=== PATIENT | female | born 1950 | race Caucasian/White ===

== ENCOUNTER 2018-09-25 13:00 | Emergency (ER) | payer SELFPAY ==
[2018-09-25 13:10] VITALS: BP 119/69; PULSE 61; TEMP 98.5; BMI 29.2
--- NOTE | 2018-09-25 13:12 | PDOC ---
Rapid Medical Evaluation Chief Complaint: Chest Pain Time Seen by Provider: 09/25/18 13:06 Medical Evaluation: 09/25/18 13:06 This patient had a brief in-person evaluation in triage CC: chest pain x 4 days. States pain in epigastric area that pierces through to back with some dizziness PE: NAD unlabored breathing S1S2 orders: ekg, labs This patient will proceed to the ED for further evaluation Discharge Disposition - Diagnosis Chest pain - Referrals - Patient Instructions - Post Discharge Activity
--- NOTE | 2018-09-25 14:55 | EKG ---
Test Reason : Blood Pressure : / mmHG Vent. Rate : 056 BPM Atrial Rate : 056 BPM P-R Int : 134 ms QRS Dur : 080 ms QT Int : 434 ms P-R-T Axes : 012 038 023 degrees QTc Int : 418 ms SINUS BRADYCARDIA OTHERWISE NORMAL ECG NO PREVIOUS ECGS AVAILABLE Confirmed by PABLO GUTIERREZ, BROOKE ([id number]) on 09/25/2018 2:55:19 PM Referred By: Confirmed By:BROOKE SHAH MD
[2018-09-25 15:28] LABS: BASO % 0.9 % (0-2.0); EOS % 4.8 % (0-4.5); HEMATOCRIT 33.4 % (32.4-45.2); HEMOGLOBIN 11.4 GM/dL (10.7-15.3); MCHC 34.3 g/dl (32.0-36.0); MEAN CELL VOLUME 90.4 fl (80-96); MEAN PLT VOLUME 8.9 fl (7.5-11.1); MONO % 9.2 % (3.8-10.2); NEUT % 55.1 % (42.8-82.8); PLATELET COUNT 172 K/MM3 (134-434); RBC 3.69 M/mm3 (3.60-5.2); RDW 13.2 % (11.6-15.6); WHITE BLOOD COUNT 3.7 K/mm3 (4.0-10.0)
[2018-09-25 15:50] LABS: ALBUMIN 3.7 g/dl (3.4-5.0); ALK PHOS 84 U/L (45-117); ANION GAP 2 MMOL/L (8-16); BILIRUBIN,TOTAL 0.3 mg/dL (0.2-1); BLOOD UREA NITROGEN 13.1 mg/dL (7-18); CALCIUM 8.7 mg/dL (8.5-10.1); CHLORIDE 105 mmol/L (98-107); CO2 34 mmol/L (21-32); CREATININE 0.7 mg/dL (0.55-1.3); GLUCOSE,RANDOM 79 mg/dL (74-106); POTASSIUM 4.8 mmol/L (3.5-5.1); SGOT/AST 12 U/L (15-37); SGPT/ALT 16 U/L (13-61); SODIUM 141 mmol/L (136-145); TOT PROT 6.7 g/dl (6.4-8.2)
--- NOTE | 2018-09-25 16:45 | PDOC ---
*Physical Exam - Vital Signs Last Vital Signs Temp Pulse Resp BP Pulse Ox 98.5 F 61 17 119/69 97 09/25/18 13:04 09/25/18 13:04 09/25/18 13:04 09/25/18 13:04 09/25/18 13:04 - Physical Exam Comments: 09/25/18 16:44 Sign-out received from outgoing ER provider Terry. Pt interviewed and examined. Ancillary studies reviewed. Patient reports "gas in her chest." Patient persistently states she no longer has symptoms at this time and wants a medication for "gas" and "drops for my dry eyes." Discussed with patient observation to r/o cardiac etiology of chest discomfort, patient persistently requests to leave and states she wants to f/u with her PCP. Advised patient to take medication as prescribed and follow up with PCP TOMORROW. Advised patient of signs and symptoms for return to ED. Patient verbalized understanding and agrees to plan. Heart Score/ECG Review - History History: Slightly suspicious - Electrocardiogram EKG: Normal - Age Age: >/= 65 - Risk Factors Risk Factors Heart Score: Yes Hx Hypertension, Yes Hx Diabetes, Yes Smoking History Based on the list above the patient has:: >/=3 risk factors or Hx atherosclerotic disease - Troponin Troponin: </= normal limit - Score Heart Score - Total: 4 ED Treatment Course - LABORATORY CBC & Chemistry Diagram: 09/25/18 15:05 09/25/18 15:05 - ADDITIONAL ORDERS Additional order review: Laboratory Results 09/25/18 15:05 Sodium 141 Potassium 4.8 Chloride 105 Carbon Dioxide 34 H Anion Gap 2 L BUN 13.1 Creatinine 0.7 Est GFR (CKD-EPI)AfAm 104.64 Est GFR (CKD-EPI)NonAf 90.29 Random Glucose 79 Calcium 8.7 Total Bilirubin 0.3 AST 12 L ALT 16 Alkaline Phosphatase 84 Troponin I < 0.02 Total Protein 6.7 Albumin 3.7 09/25/18 15:05 RBC 3.69 MCV 90.4 MCHC 34.3 RDW 13.2 MPV 8.9 Neutrophils % 55.1 Lymphocytes % 30.0 Monocytes % 9.2 Eosinophils % 4.8 H Basophils % 0.9 *DC/Admit/Observation/Transfer Diagnosis at time of Disposition: Dry eye syndrome of both eyes Chest pain Qualifiers: Chest pain type: unspecified Qualified Code(s): R07.9 - Chest pain, unspecified - Discharge Dispostion Disposition: HOME Condition at time of disposition: Stable Decision to Admit order: No - Prescriptions Prescriptions: Peg 400/Hypromellose/Glycerin [Visine Dry Eye Relief Drop] 15 ml OP TID PRN #1 bot PRN Reason: Dry Eyes Simethicone [Gas Relief] 80 mg PO BID PRN #20 tab.chew PRN Reason: Gas - Referrals - Patient Instructions Printed Discharge Instructions: DI for Atypical Chest Pain, DI for Dyspepsia - Post Discharge Activity
--- NOTE | 2018-09-25 16:58 | PDOC ---
History of Present Illness - General Chief Complaint: Chest Pain Stated Complaint: CHEST PAIN Time Seen by Provider: 09/25/18 13:06 History Source: Patient - History of Present Illness Initial Comments: 09/25/18 16:54 Patient with h/o HTN, DM, HPL present with complains of 1 year h/o intermittent right sided chest pains which has been persistent for the last 4 days after watching a Telenovela show 4 days ago. Patient report she has been smoking 6 cigarets a day and has not been taking her medications for few weeks now due to having her medication in her purse. Patient in the vertical treatment room report that patient was smoking while waiting in the vertical room to be seen. Patient denies SOB, dizziness, fever, chills, weakness, palpitations, dizziness, numbness or tingling sensation. Patient report she was told by her PCP that she will need to get injection for her chest pain in the past but never followed up Timing/Duration: intermittent, other (1 year) Associated Symptoms: reports: denies symptoms. denies: fever/chills, headaches , nausea/vomiting, shortness of breath, syncope, weakness Past History - Past Medical History Allergies/Adverse Reactions: Allergies Allergy/AdvReac Type Severity Reaction Status Date / Time No Known Allergies Allergy Verified 09/25/18 13:10 Home Medications: Ambulatory Orders Peg 400/Hypromellose/Glycerin [Visine Dry Eye Relief Drop] 15 ml OP TID PRN #1 bot 09/25/18 Simethicone [Gas Relief] 80 mg PO BID PRN #20 tab.chew 09/25/18 Asthma: Yes COPD: No Diabetes: Yes (pre) HTN: Yes Hypercholesterolemia: Yes - Surgical History Cholecystectomy: Yes (not sure) - Suicide/Smoking/Psychosocial Hx Smoking History: Current every day smoker Number of Cigarettes Smoked Daily: 20 Information on smoking cessation initiated: Yes Hx Alcohol Use: No Drug/Substance Use Hx: No Review of Systems - Review of Systems Able to Perform ROS?: Yes Is the patient limited Polish proficient: No Constitutional: No: Chills, Fever, Malaise, Night Sweats HEENTM: No: Symptoms Reported, See HPI, Eye Pain, Blurred Vision, Tearing, Recent change in vision, Double Vision, Cataracts, Ear Pain, Ocular Prothesis, Ear Discharge, Nose Pain, Nose Congestion, Tinnitus, Nose Bleeding, Hearing Loss , Throat Pain, Throat Swelling, Mouth Pain, Dental Problems, Difficulty Swallowing, Mouth Swelling, Other Respiratory: No: Symptoms reported, See HPI, Cough, Orthopnea, Shortness of Breath, SOB with Exertion, SOB at Rest, Stridor, Wheezing, Productive cough, Hemoptysis, Other Cardiac (ROS): Yes: Chest Pain (right side chest pain). No: Symptoms Reported, See HPI, Edema, Irregular Heart Rate, Lightheadedness, Palpitations, Syncope, Chest Tightness, Other ABD/GI: No: Symptoms Reported, Nausea, Vomiting Neurological: No: Symptoms reported, Headache, Weakness, Unsteady Gait, Dizziness All Other Systems: Reviewed and Negative *Physical Exam - Vital Signs Last Vital Signs Temp Pulse Resp BP Pulse Ox 98.5 F 61 17 119/69 97 09/25/18 13:04 09/25/18 13:04 09/25/18 13:04 09/25/18 13:04 09/25/18 13:04 - Physical Exam General Appearance: Yes: Nourished, Appropriately Dressed. No: Apparent Distress HEENT: positive: DIMPLE, Normal ENT Inspection Neck: positive: Supple. negative: Tender Respiratory/Chest: positive: Chest Tender (TTP to right chest wall), Lungs Clear , Normal Breath Sounds. negative: Respiratory Distress, Accessory Muscle Use, Labored Respiration, Crackles Cardiovascular: positive: Regular Rhythm, Regular Rate. negative: Murmur Gastrointestinal/Abdominal: positive: Normal Bowel Sounds, Flat, Soft. negative : Tender, Organomegaly Musculoskeletal: positive: Normal Inspection. negative: CVA Tenderness Extremity: positive: Normal Capillary Refill, Normal Inspection, Normal Range of Motion Neurologic: positive: Fully Oriented, Alert, Normal Mood/Affect, Normal Response ED Treatment Course - LABORATORY CBC & Chemistry Diagram: 09/25/18 15:05 09/25/18 15:05 - ADDITIONAL ORDERS Additional order review: Laboratory Results 09/25/18 15:05 Sodium 141 Potassium 4.8 Chloride 105 Carbon Dioxide 34 H Anion Gap 2 L BUN 13.1 Creatinine 0.7 Est GFR (CKD-EPI)AfAm 104.64 Est GFR (CKD-EPI)NonAf 90.29 Random Glucose 79 Calcium 8.7 Total Bilirubin 0.3 AST 12 L ALT 16 Alkaline Phosphatase 84 Troponin I < 0.02 Total Protein 6.7 Albumin 3.7 09/25/18 15:05 RBC 3.69 MCV 90.4 MCHC 34.3 RDW 13.2 MPV 8.9 Neutrophils % 55.1 Lymphocytes % 30.0 Monocytes % 9.2 Eosinophils % 4.8 H Basophils % 0.9 - RADIOLOGY Radiology Studies Ordered: Category Date Time Status CHEST PA & LAT [RAD] Stat Radiology 09/25/18 15:00 Ordered Medical Decision Making - Medical Decision Making 09/25/18 14:58 Patient with h/o HTN, DM, HPL present with complains of 1 year h/o intermittent right sided chest pains which has been persistent for the last 4 days after watching a Telenovela show 4 days ago. Patient report she has been smoking 6 cigarets a day and has not been taking her medications for few weeks now due to having her medication in her purse. Patient in the vertical treatment room report that patient was smoking while waiting in the vertical room to be seen. Patient denies SOB, dizziness, fever, chills, weakness, palpitations, dizziness, numbness or tingling sensation. Patient report she was told by her PCP that she will need to get injection for her chest pain in the past but never followed up Clinical exam significant for reproduceable moderate chest wall tenderness on right side from 2nd to 8th right intercostal space otherwise normal exam. normal cardio exam and lungs CTAB. Patient in no acute distress. Symptoms likely costocvhodritis vs less likely cardiogenic pain. CBC,CMP, EKG, cardiac profile ordered. CXR ordered to r/o acute chest pathology 09/25/18 16:30 EKG wnl. CBC , Chemistry and cardiac profile labs with no acute pathology. Patient signed out to on-coming team PETE Garza for follow-up care *DC/Admit/Observation/Transfer Diagnosis at time of Disposition: Costochondral chest pain Chest pain Qualifiers: Chest pain type: unspecified Qualified Code(s): R07.9 - Chest pain, unspecified - Discharge Dispostion Disposition: HOME Condition at time of disposition: Stable Decision to Admit order: No - Prescriptions Prescriptions: Peg 400/Hypromellose/Glycerin [Visine Dry Eye Relief Drop] 15 ml OP TID PRN #1 bot PRN Reason: Dry Eyes Simethicone [Gas Relief] 80 mg PO BID PRN #20 tab.chew PRN Reason: Gas - Referrals - Patient Instructions Printed Discharge Instructions: DI for Atypical Chest Pain, DI for Dyspepsia - Post Discharge Activity
== END 2018-09-25 17:49 | disposition home or self-care (01) ==
LOC: JER 13:00
DX: R07.9 Chest pain, unspecified (principal); I10 Essential (primary) hypertension; E78.5 Hyperlipidemia, unspecified; F17.210 Nicotine dependence, cigarettes, uncomplicated; R73.03 Prediabetes
CPT/HCPCS: 36415; 80053; 84484; 85025; 93005; 93010; 99282-25